=== PATIENT | male | born 1950 | race Caucasian/White ===

== ENCOUNTER 2019-02-08 17:26 | Emergency (ER) | payer MEDICARE, MEDICAID ==
--- NOTE | 2019-02-08 17:51 | ED Physician Chart ---
ED Chief Complaint/HPI - Patient Information Date Seen:: 02/08/19 Time Seen:: 17:35 Chief Complaint:: Confusion History of Present Illness:: onset x 3 days of AMS, ALOC, confusion, and weakness; no report of trauma, H/As , S/T, neck pain, C/P, cough, SOB, Abd. Pain, A/N/V/D/C, fever, chills, or urinary s/s Historian:: Patient, EMS Review:: Nurse's Note Reviewed, Old Chart Reviewed, EMS run form Reviewed <Ge Dickens - Last Filed: 02/08/19 18:54> - Patient Information Allergies:: Allergies Allergy/AdvReac Type Severity Reaction Status Date / Time No Known Allergies Allergy Verified 02/08/19 18:10 Vitals:: Vital Signs - 8 hr 02/08/19 18:15 Temp 97.7 F HR 81 RR 20 BP 140/89 O2 Sat % 98 <Mark Alba - Last Filed: 02/09/19 12:03> ED Review of Systems - Review of Systems General/Constitutional: No fever, No chills, No weight loss, Weakness, No diaphoresis, No edema, No loss of appetite Skin: No skin lesions, No rash, No bruising Head: No headache, No light-headedness Eyes: No loss of vision, No pain, No diplopia ENT: No earache, No nasal drainage, No sore throat, No tinnitus Neck: No neck pain, No swelling, No thyromegaly, No stiffness, No mass noted Cardio Vascular: No chest pain, No palpitations, No PND, No orthopnea, No edema Pulmonary: No SOB, No cough, No sputum, No wheezing GI: No nausea, No vomiting, No diarrhea, No pain, No melena, No hematochezia, No constipation, No hematemesis G/U: No dysuria, No frequency, No hematuria, No nacturia Musculoskeletal: No bone or joint pain, No back pain, No muscle pain Endocrine: No polyuria, No polydipsia Psychiatric: No prior psych history, No depression, No anxiety, No suicidal ideation, No homicidal ideation, No auditory hallucination, No visual hallucination Hematopoietic: No bruising, No lymphadenopathy Allergic/Immuno: No urticaria, No angioedema Neurological: No syncope, No focal symptoms, Weakness, No paresthesia, No headache, No seizure, No dizziness, Confusion, No vertigo <Ge Dickens - Last Filed: 02/08/19 18:54> ED Past Medical History - Past Medical History Obtainable: Yes Past Medical History: HTN, Dyslipidemia, Dementia Family History: HTN Social History: Non Smoker, No Alcohol, No Drug Use, Single, Care Facility Surgical History: None Psychiatricy History: Dementia Medication: Reviewed <Ge Dickens - Last Filed: 02/08/19 18:54> Family Medical History - Family Member Mother History Unknown: Yes <AnjaliMark - Last Filed: 02/09/19 12:03> ED Physical Exam - Physical Examination General/Constitutional: Awake, Well-developed, well-nourished, Alert, No distress, GCS 15, Non-toxic appearing, Ambulatory Head: Atraumatic Eyes: Lids, conjuctiva normal, PERRL, EOMI Skin: Nl inspection, No rash, No skin lesions, No ecchymosis, Well hydrated, No lymphadenopathy ENMT: External ears, nose nl, TM canals nl, Nasal exam nl, Lips, teeth, gums nl , Oropharynx nl, Tonsils nl Neck: Nontender, Full ROM w/o pain, No JVD, No nuchal rigidity, No bruit, No mass, No stridor Respiratory: Nl effort/Exclusion, Clear to Auscultation, No Wheeze/Rhonchi/Rales Cardio Vascular: RRR, No murmur, gallop, rubs, NL S1 S2, Carotid/Femoral/Distal pulses equal bilaterally GI: No tenderness/rebounding/guarding, No organomegaly, No hernia, Normal BS's, Nondistended, No mass/bruits, No McBurney tenderness : No CVA tenderness Extremities: No tenderness or effusion, Full ROM, normal strength in all extremities, No edema, Normal digits & nails Neuro/Psych: Alert/oriented, DTR's symmetric, Normal sensory exam, Normal motor strength, Judgement/insight normal, Mood normal, Normal gait, No focal deficits Misc: Normal back, No paraspinal tenderness <Ge Dickens - Last Filed: 02/08/19 18:54> ED Labs/Radiology/EKG Results - Lab Results Results: Laboratory Tests 02/08/19 02/08/19 02/08/19 18:00 18:00 18:00 WBC 8.0 RBC 5.30 Hgb 16.0 Hct 46.6 MCV 87.9 MCH 30.1 MCHC Differential 34.3 RDW 14.4 Plt Count 195 MPV 6.7 Neutrophils % 67.2 Lymphocytes % 24.8 Monocytes % 5.6 Eosinophils % 2.2 Basophils % 0.2 PT 10.9 INR 1.05 PTT (Actin FS) 28.2 Sodium 136 Potassium 4.1 Chloride 105 Carbon Dioxide 20.9 L Anion Gap 14.2 BUN 26 H Creatinine 1.4 H Est GFR ( Amer) > 60.0 Est GFR (Non-Af Amer) 53.4 BUN/Creatinine Ratio 18.6 Glucose 96 Whole Bld Lactic Acid Calcium 9.4 Total Bilirubin 0.8 AST 43 H ALT 43 Alkaline Phosphatase 36 Creatine Kinase 328 H CK-MB (CK-2) 7.8 H Troponin I Total Protein 7.1 Albumin 3.9 L Globulin 3.2 Albumin/Globulin Ratio 1.2 Amylase Lipase Urine Source Urine Color Urine Clarity Urine pH Ur Specific [place] Urine Protein Urine Glucose (UA) Urine Ketones Urine Blood Urine Nitrate Urine Bilirubin Urine Urobilinogen Ur Leukocyte Esterase Urine RBC Urine WBC Ur Epithelial Cells Urine Bacteria 02/08/19 02/08/19 02/08/19 18:00 18:00 22:42 WBC RBC Hgb Hct MCV MCH MCHC Differential RDW Plt Count MPV Neutrophils % Lymphocytes % Monocytes % Eosinophils % Basophils % PT INR PTT (Actin FS) Sodium Potassium Chloride Carbon Dioxide Anion Gap BUN Creatinine Est GFR ( Amer) Est GFR (Non-Af Amer) BUN/Creatinine Ratio Glucose Whole Bld Lactic Acid 1.08 Calcium Total Bilirubin AST ALT Alkaline Phosphatase Creatine Kinase CK-MB (CK-2) Troponin I < 0.01 L Total Protein Albumin Globulin Albumin/Globulin Ratio Amylase 36 Lipase 38 Urine Source [place] Urine Color YELLOW Urine Clarity CLEAR Urine pH 6.0 Ur Specific [place] 1.010 Urine Protein 30 H Urine Glucose (UA) NEGATIVE Urine Ketones NEGATIVE Urine Blood TRACE Urine Nitrate NEGATIVE Urine Bilirubin NEGATIVE Urine Urobilinogen 1.0 Ur Leukocyte Esterase NEGATIVE Urine RBC 0-2 H Urine WBC 0-2 Ur Epithelial Cells RARE Urine Bacteria OCCASIONAL Laboratory Last Values WBC 8.0 Th/cmm (4.8-10.8) 02/08/19 18:00 RBC 5.30 Mil/cmm (3.80-5.80) 02/08/19 18:00 Hgb 16.0 gm/dL (12-16) 02/08/19 18:00 Hct 46.6 % (41.0-60) 02/08/19 18:00 MCV 87.9 fl (80-99) 02/08/19 18:00 MCH 30.1 pg (27.0-31.0) 02/08/19 18:00 MCHC Differential 34.3 pg (28.0-36.0) 02/08/19 18:00 RDW 14.4 % (11.5-20.0) 02/08/19 18:00 Plt Count 195 Th/cmm (150-400) 02/08/19 18:00 MPV 6.7 fl 02/08/19 18:00 Neutrophils % 67.2 % (40.0-80.0) 02/08/19 18:00 Lymphocytes % 24.8 % (20.0-50.0) 02/08/19 18:00 Monocytes % 5.6 % (2.0-10.0) 02/08/19 18:00 Eosinophils % 2.2 % (0.0-5.0) 02/08/19 18:00 Basophils % 0.2 % (0.0-2.0) 02/08/19 18:00 PT 10.9 SECONDS (9.5-11.5) 02/08/19 18:00 INR 1.05 (0.5-1.4) 02/08/19 18:00 PTT (Actin FS) 28.2 SECONDS (26.0-38.0) 02/08/19 18:00 Sodium 136 mEq/L (136-145) 02/08/19 18:00 Potassium 4.1 mEq/L (3.5-5.1) 02/08/19 18:00 Chloride 105 mEq/L (98-107) 02/08/19 18:00 Carbon Dioxide 20.9 mEq/L (21.0-31.0) L 02/08/19 18:00 Anion Gap 14.2 (7.0-16.0) 02/08/19 18:00 BUN 26 mg/dL (7-25) H 02/08/19 18:00 Creatinine 1.4 mg/dL (0.7-1.3) H 02/08/19 18:00 Est GFR ( Amer) > 60.0 ml/min (>90) 02/08/19 18:00 Est GFR (Non-Af Amer) 53.4 ml/min 02/08/19 18:00 BUN/Creatinine Ratio 18.6 02/08/19 18:00 Glucose 96 mg/dL (70-105) 02/08/19 18:00 Whole Bld Lactic Acid 1.08 mmol/L (0.60-1.99) 02/08/19 18:00 Calcium 9.4 mg/dL (8.6-10.3) 02/08/19 18:00 Total Bilirubin 0.8 mg/dL (0.3-1.0) 02/08/19 18:00 AST 43 U/L (13-39) H 02/08/19 18:00 ALT 43 U/L (7-52) 02/08/19 18:00 Alkaline Phosphatase 36 U/L (34-104) 02/08/19 18:00 Creatine Kinase 328 U/L (30-223) H 02/08/19 18:00 CK-MB (CK-2) 7.8 ng/mL (0.6-6.3) H 02/08/19 18:00 Troponin I < 0.01 ng/mL (0.01-0.05) L 02/08/19 18:00 Total Protein 7.1 gm/dL (6.0-8.3) 02/08/19 18:00 Albumin 3.9 gm/dL (4.2-5.5) L 02/08/19 18:00 Globulin 3.2 gm/dL 02/08/19 18:00 Albumin/Globulin Ratio 1.2 (1.0-1.8) 02/08/19 18:00 Amylase 36 U/L (29-103) 02/08/19 18:00 Lipase 38 U/L (11-82) 02/08/19 18:00 Urine Source [place] 02/08/19 22:42 Urine Color YELLOW 02/08/19 22:42 Urine Clarity CLEAR (CLEAR) 02/08/19 22:42 Urine pH 6.0 (4.6 - 8.0) 02/08/19 22:42 Ur Specific [place] 1.010 (1.005-1.030) 02/08/19 22:42 Urine Protein 30 mg/dL (NEGATIVE) H 02/08/19 22:42 Urine Glucose (UA) NEGATIVE mg/dL (NEGATIVE) 02/08/19 22:42 Urine Ketones NEGATIVE mg/dL (NEGATIVE) 02/08/19 22:42 Urine Blood TRACE (NEGATIVE) 02/08/19 22:42 Urine Nitrate NEGATIVE (NEGATIVE) 02/08/19 22:42 Urine Bilirubin NEGATIVE (NEGATIVE) 02/08/19 22:42 Urine Urobilinogen 1.0 E.U./dL (0.2 - 1.0) 02/08/19 22:42 Ur Leukocyte Esterase NEGATIVE (NEGATIVE) 02/08/19 22:42 Urine RBC 0-2 /hpf (0-5) H 02/08/19 22:42 Urine WBC 0-2 /hpf (0-5) 02/08/19 22:42 Ur Epithelial Cells RARE /lpf (FEW) 02/08/19 22:42 Urine Bacteria OCCASIONAL /hpf (NONE SEEN) 02/08/19 22:42 - Radiology Results Results: CXR: no focal consolidation <Mark Alba - Last Filed: 02/09/19 12:03> ED Assessment - Procedures Procedures:: Right inguinal skin abrasion was cleaned with NS, hydrogen peroxide and betadine. Glue was applied to cover the abrasion. Pt tolerated the procedure well. <Mark Alba - Last Filed: 02/09/19 12:03> ED Septic Shock - . Is Septic Shock (SBP<90, OR Lactate>4 mmol\L) present?: No <Ge Dickens - Last Filed: 02/08/19 18:54> - . Is Septic Shock (SBP<90, OR Lactate>4 mmol\L) present?: No - <6hrs of presentation: Vital Signs: Vital Signs - 8 hr 02/08/19 18:15 Temp 97.7 F HR 81 RR 20 BP 140/89 O2 Sat % 98 <Mark Alba - Last Filed: 02/09/19 12:03> ED Reassessment (Disposition) - Reassessment Reassessment Condition:: Improved - Diagnosis Diagnosis:: AMS; ALOC; Confusion; Weakness; Dehydration; Hypoalbuminemia <Ge Dickens - Last Filed: 02/08/19 18:54> - Reassessment Reassessment:: After all work ups, pt was determined not to meet admission criteria. Pt was discharged back to SNF. Reassessment Condition:: Improved - Patient Disposition Discharge/Transfer:: [facility] Care - SNF <Mark Alba - Last Filed: 02/09/19 12:03>
[2019-02-08 18:27] LABS: EOSINOPHILE ABSOLUTE 0.2 Th/cmm (0.1-0.4); MONOCYTE ABSOLUTE 0.4 Th/cmm (0.3-1.0)
[2019-02-08 18:35] LABS: % BASOPHILS 0.2 % (0.0-2.0); % EOSINOPHILS 2.2 % (0.0-5.0); % LYMPHOCYTES 24.8 % (20.0-50.0); % MONOCYTES 5.6 % (2.0-10.0); % NEUTROPHILS 67.2 % (40.0-80.0); HEMATOCRIT 46.6 % (41.0-60); MEAN CELL VOLUME 87.9 fl (80-99); MEAN CORPUSCULAR HEMOGLOBIN 30.1 pg (27.0-31.0); MEAN CORPUSCULAR HGB CONC 34.3 pg (28.0-36.0); MEAN PLATELET VOLUME 6.7 fl; NEUTROPHILE ABSOLUTE 5.4 Th/cmm (1.8-8.0); PLATELET COUNT 195 Th/cmm (150-400); RED CELL DISTRIBUTION WIDTH 14.4 % (11.5-20.0)
[2019-02-08 18:41] LABS: INR 1.05 (0.5-1.4); PROTHROMBIN TIME (TEST) 10.9 SECONDS (9.5-11.5)
[2019-02-08 18:43] LABS: ALB/GLOB RATIO 1.2 (1.0-1.8); ALBUMIN 3.9 gm/dL (4.2-5.5); ALKALINE PHOSPHATASE 36 U/L (34-104); ANION GAP 14.2 (7.0-16.0); BILIRUBIN,TOTAL 0.8 mg/dL (0.3-1.0); BUN - UREA NITROGEN 26 mg/dL (7-25); CALCIUM SERUM 9.4 mg/dL (8.6-10.3); CARBON DIOXIDE 20.9 mEq/L (21.0-31.0); CHLORIDE 105 mEq/L (98-107); CREATININE - SERUM 1.4 mg/dL (0.7-1.3); CREATININE KINASE 328 U/L (30-223); GFR AFRICAN-AMERICAN > 60.0 ml/min (>90); GFR NON AFRICAN-AMERICAN 53.4 ml/min; GLUCOSE 96 mg/dL (70-105); POTASSIUM SERUM 4.1 mEq/L (3.5-5.1); SGOT 43 U/L (13-39); SGPT/ALT 43 U/L (7-52); SODIUM SERUM 136 mEq/L (136-145); TOTAL PROTEIN,SERUM 7.1 gm/dL (6.0-8.3)
[2019-02-08 18:53] LABS: TROP I < 0.01 ng/mL (0.01-0.05)
[2019-02-08] MEDS ORDERED: Sodium Chloride 0.9% 1,000 ML IV ONE (18:55)
[2019-02-08 20:25] LABS: AMYLASE SERUM 36 U/L (29-103); LIPASE 38 U/L (11-82)
[2019-02-08 22:52] LABS: URINE SOURCE MIDSTREAM
[2019-02-08 22:57] LABS: URINE BILIRUBIN NEGATIVE (NEGATIVE); URINE BLOOD TRACE (NEGATIVE); URINE GLUCOSE (UA) NEGATIVE (NEGATIVE); URINE KETONE NEGATIVE (NEGATIVE); URINE LEUKOCYTE ESTERASE NEGATIVE (NEGATIVE); URINE MICROSCOPIC INDICATED? YES; URINE NITRATE NEGATIVE (NEGATIVE); URINE PROTEIN 30 mg/dL (NEGATIVE)
[2019-02-08 23:16] LABS: URINE CLARITY CLEAR (CLEAR); URINE COLOR YELLOW
[2019-02-08 23:20] LABS: URINE BACTERIA OCCASIONAL /hpf (NONE SEEN); URINE EPITHELIAL CELLS RARE /lpf (FEW); URINE RBC 0-2 /hpf (0-5); URINE WBC 0-2 /hpf (0-5)
--- NOTE | 2019-02-09 08:41 | Diagnostic Imaging Report ---
CHEST X-RAY: AP view INDICATION: pain COMPARISON: None FINDINGS: Increased interstitial lung markings are noted. There may be small granulomas of the lungs. No focal consolidation or effusions. Heart size is upper limits of normal. Degenerative changes of spine are noted with mild scoliosis. IMPRESSION: Increased interstitial lung markings which may represent chronic changes. A mild degree of congestion cannot be excluded. Possible small granulomas of the lungs versus chronic and additional lung changes. Please correlate with clinical history and old exams. Consider follow-up with assessment if indicated. No focal consolidation identified.
== END 2019-02-09 00:44 ==
LOC: ER 17:26
DX: E86.0 Dehydration (principal); E88.09 Other disorders of plasma-protein metabolism, not elsewhere classified; R41.82 Altered mental status, unspecified; R53.1 Weakness; I10 Essential (primary) hypertension; F03.90 Unspecified dementia, unspecified severity, without behavioral disturbance, psychotic disturbance, mood disturbance, and anxiety
CPT/HCPCS: 36415-UA; 71045-TC; 80053-TC; 81001-TC; 82150-TC; 82550-TC; 82553; 83605; 83690-TC; 84484-TC; 85025-TC; 85610-TC; 85730-TC; 93005